=== PATIENT | male | born 1960 | race Caucasian/White ===

== ENCOUNTER 2023-04-01 06:56 | Outpatient (CLI) | payer OTHER, MEDICAID | END 2023-04-01 06:57 | disposition home or self-care (01) | LOC: CSHCP 06:56 | PROVIDERS: ATTEND Internal Medicine | DX: J44.9 Chronic obstructive pulmonary disease, unspecified (principal) | CPT/HCPCS: 94060; 94664; 94726; 94729; 94760 ==